=== PATIENT | male | born 1985 | race Caucasian/White ===

== ENCOUNTER 2022-01-24 11:26 | Emergency (ER) | payer SELFPAY ==
[2022-01-24] MEDS ORDERED: NORCO 5-325 TA1 EACH PO (12:50)
[2022-01-24] MEDS ORDERED: PREDNISONE20 MG PO (12:50)
[2022-01-24] MEDS ORDERED: CYCLOBENZAPRINE10 MG PO (12:51)
== END 2022-01-24 12:58 | disposition home or self-care (01) ==
LOC: FER 11:26
DX: M50.30 Other cervical disc degeneration, unspecified cervical region (principal); M50.20 Other cervical disc displacement, unspecified cervical region; Z28.310 Unvaccinated for COVID-19
CPT/HCPCS: J1885